=== PATIENT | female | born 1955 | race Caucasian/White ===

== ENCOUNTER 2019-11-25 06:00 | Outpatient (RCR) | payer MEDICARE, MEDICAID, SELFPAY | END 2019-11-30 23:59 | disposition home or self-care (01) | LOC: LAB 06:00 | PROVIDERS: Family Provider Internal Medicine; Visit Provider Nurse Practitioner Family | DX: N20.0 Calculus of kidney (principal); N39.0 Urinary tract infection, site not specified | CPT/HCPCS: 36415; 80061; 81003; 85025; 87086 ==

== ENCOUNTER 2019-12-10 19:11 | Emergency (ER) | payer MEDICARE, MEDICAID, SELFPAY ==
[2019-12-10 19:12] VITALS: BP 129/83; PULSE 79; RESP 18; TEMP 36.6; O2SAT 93; BMI 34.6
--- NOTE | 2019-12-10 19:34 | XRR_ITS ---
PROCEDURE INFORMATION: Exam: XR Chest, 1 View Exam date and time: 12/10/2019 7:41 PM Age: 64 years old Clinical indication: Other: AMS TECHNIQUE: Imaging protocol: XR of the chest Views: 1 view. COMPARISON: CR Chest 1 [place] [id number] 11/16/2019 10:07 AM FINDINGS: Lungs: Unremarkable. No consolidation. Pleural space: Unremarkable. No pleural effusion. No pneumothorax. Heart/Mediastinum: Unremarkable. No cardiomegaly. Bones/joints: Unremarkable. XR/XR chest 1V portable [id number] IMPRESSION: No acute findings.
--- NOTE | 2019-12-10 19:34 | ECG_ITS ---
Measurements Intervals [place] Rate: 72 P: 42 IL: 151 QRS: -18 QRSD: 101 T: 11 QT: 409 QTc: 450 SINUS RHYTHM Compared to ECG 11/14/2019 09:28:32 Sinus tachycardia no longer present Left-axis deviation no longer present Myocardial infarct finding no longer present Electronically Signed On 12-11-2019 16:44:14 AUDOGRAPH OPERATOR by Sue Bolden M.D. [id number]
--- NOTE | 2019-12-10 19:36 | ED_ITS ---
Entered by Catherine Escobar, acting as scribe for Iram Rossi Documented by User: Iram Rossi 12/10/19 23:07 HPI - Psych General: Chief Complaint: Psychiatric Symptoms Stated Complaint: hip Time Seen by Provider: 12/10/19 19:17 Source: patient and EMS Mode of arrival: EMS Limitations: no limitations History of Present Illness: HPI Narrative: 64 yo female presents to ED from [facility] with complaints of suicidal ideation and depression. She said she can't figure out how to kill herself without getting caught. She said she has been wanting to since she was 12. The patient has a Fentanyl patch currently in place. MD complaint: suicidal ideation and feels depressed Onset (ago): year(s) Duration: constant History of same: Yes Relieving factors: none Exacerbating factors: none Context: significant life stressor (continual pain) Associated psychiatric symptoms: depression and suicidal ideation Associated symptoms: Reports depression and suicidal ideation Treatments prior to arrival: placed on mental health hold If self harm: admits thoughts of self harm Review of Systems General: Reports: other (negative unless marked) Const: Denies: fever, chills, fatigue, malaise or diaphoresis Eyes: Denies: change in vision or blurry vision ENMT: Denies: throat pain, painful swallowing, hoarseness, ear pain, ear disc harge, Change in hearing or nasal discharge Card: Denies: chest pain, palpitations, irregular heart rhythm, syncope, pre- syncope, shortness of breath on exertion or shortness of breath when lying down Resp: Denies: shortness of breath, productive cough, non-productive cough, wheezing, coughing up blood or chest congestion GI: Denies: abdominal pain, nausea, vomiting, vomiting blood, coffee grounds in vomit, diarrhea, constipation, cramping, blood in stool or black tarry stool : Denies: flank pain, painful urination, urinary frequency, urinary urgency, decreased urine ouput, urinary incontinence or blood in urine Musc: Denies: neck pain, back pain, extremity swelling, joint swelling, joint warmth or joint stiffness Skin/Breast: Denies: rash, skin tenderness or yellow skin Neuro: Denies: headache, numbness in extremities, weakness in extremities, changes in sensation, lack of coordination, difficulty walking, dizziness, vertigo or confusion Psych: Reports: depression and suicidal ideation Endo: Denies: excessive thirst, tired all the time, cold intolerance, excessive sweating, flushing or hot flashes Pranav/Lymph: Denies: easy bruising, easy bleeding, petechiae or enlarged lymph nodes All/Imm: Denies: hives, throat swelling, tongue swelling, facial swelling or acute wheezing PFSH ED PFSH: Statuses (acute, chronic, etc) shown below reflect problem list status as previously entered and may not be historically accurate Social History Smoking and tobacco status: never smoked Alcohol intake: former Physical Exam Const: COMMON NORMALS: no apparent distress, oriented x3, no limitations, healthy appearing and well nourished EXAM LIMITATIONS: no altered mental status GENERAL APPEARANCE: cooperative, well kempt and well developed O RIENTATION/CONSCIOUSNESS: Yes awake HENMT: COMMON NORMALS: normocephalic, head/scalp atraumatic, hearing grossly normal bilaterally, external ears normal, EAC's normal, external nose normal and moist oral mucous membranes HEAD & SCALP: normal to inspection, normocephalic and atraumatic FACE & SINUS: normal facial exam and face symmetric NOSE: external nose normal and nares normal EXTERNAL EAR: Yes external ears normal EXTERNAL AUDITORY CANAL: EAC's normal MOUTH: oral and palatal mucosa normal and tongue normal Eye: COMMON NORMALS: PERRL, EOMs intact bilaterally, conjunctivae normal and no scleral icterus GENERAL EYE: normal appearance of both eyes and normal light reflex CONJUNCTIVA: Yes conjunctivae normal SCLERA: sclerae normal CORNEA: Yes corneas normal PUPIL: Yes PERRL DIRECT OPHTHALMOSCOPY: Yes n ormal light reflex Neck/C-Spine: COMMON NORMALS: full ROM, no lymphadenopathy, supple, no meningeal signs and no JVD GENERAL: Yes normal visual inspection and Yes trachea midline CERVICAL SPINE: Yes cervical ROM normal Chest: COMMONS NORMALS: inspection of chest normal and palpation of chest normal Resp: COMMON NORMALS: normal respiratory effort, no retractions, no use of accessory muscles and clear to auscultation bilaterally EFFORT & INSPECTION: Yes able to speak in complete sentences AUSCULTATION: clear to auscultation bilaterally Cardio: COMMON NORMALS: no JVD, regular rate, regular rhythm, S1 normal heart sound, S2 normal heart sound, no gallops, no clicks, no murmurs and no rub JUGULAR VENOUS DISTENTION: no JVD RATE: regular rate RHYTHM: regular rhythm HEART SOUNDS: S1 normal and S2 normal GI: COMMON NORMALS: soft to palpation, non-tender, no hepatosplenomegaly and no masses INSPECTION: Yes normal to inspection PALPATION: Yes soft and Yes no hepatosplenomegaly : COMMON NORMALS: Yes no CVA tenderness BLADDER/KIDNEY EXAM: Yes no CVA tenderness Back/Pelvis: COMMON NORMALS: no CVA tenderness, thoracic and lumbar spine normal to inspection, no thoracic nor lumbar tenderness and thoraco-lumbar ROM normal Extremity: COMMON NORMALS: normal to inspection, full ROM, normal capillary refill, no joint enlargement, no clubbing, cyanosis or edema and no calf tenderness Neuro: COMMON NORMALS: oriented x3, CN's II-XII intact bilaterally, moves all extremities, no focal motor deficits and no sensory deficits noted MENINGEAL SIGNS: Yes no meningeal signs Psych: COMMON NORMALS: mental status grossly normal, thought process normal, cooperative, affect normal, speech normal and activity/motor behavior normal APPEARANCE: Yes well kempt SPEECH: Yes normal speech THOUGHT PROCESS: normal thought process Skin: COMMON NORMALS: no rashes or lesions noted, skin turgor normal, no jaundice, no petechiae and no mottling GENERAL SKIN EXAM: no rashes or lesions noted and turgor normal MDM - Psych Lab Data: Labs: Lab Results 12/10/19 12/10/19 12/10/19 Range/Units 20:10 20:10 20:10 WBC 6.8 (4.0-10.0) 10^3/ uL RBC 3.72 L (4.1-5.3) 10^6/u L Hgb 9.6 L (11.5-15.3) g/dL Hct 31.8 L (37.0-47.0) % MCV 85.5 (81-99) fL MCH 25.8 L (28.0-34.0) pg MCHC 30.2 (30.0-36.0) g/dL RDW 15.8 H (12.1-15.1) % Plt Count 311 (130-400) 10^3/c mm MPV 9.8 (7.4-10.4) fL Neut % (Auto) 57.2 % Lymph % (Auto) 30.6 % [place] % (Auto) 7.2 % Eos % (Auto) 4.1 % Baso % (Auto) 0.6 % Neut # (Auto) 3.9 (1.8-7.7) 10^3/u L Lymph # (Auto) 2.1 (0.8-4.8) 10^3/u L [place] # (Auto) 0.5 (0.2-0.9) 10^3/u L Eos # (Auto) 0.3 (0.0-0.8) 10^3/u L Baso # (Auto) 0.0 (0.0-0.1) 10^3/u L Nucleated RBC % (a uto) 0 % Nucleated RBCs # 0.0 /100WBC PT 14.30 H (10.5-13.3) SECO NDS INR 1.07 (0.8-1.2) Sodium 135 L (136-145) mmol/L Potassium 3.9 (3.5-5.1) mmol/L Chloride 100 (98-107) mmol/L Carbon Dioxide 26 (22-29) mmol/L Anion Gap 12.9 (5-19) BUN 15 (8-23) mg/dL Creatinine 0.8 (0.5-0.9) mg/dL GFR Calculation 72.0 L (90-130) mL/min Glucose 247 H (74-106) mg/dL Calcium 9.7 (8.8-10.2) mg/Dl Total Bilirubin 0.2 (0.15-1.2) mg/dL AST 12 (0-32) U/L ALT 11 (0-33) U/L Alkaline Phosphata se 257 H (35-105) IU/L Total Protein 5.9 L (6.6-8.7) g/dL Albumin 3.5 (3.5-5.2) g/dL Globulin 2.4 (1.3-4.6) g/dL TSH 0.82 (0.27-4.20) uIU/ mL Urine Color (Yellow) Urine Appearance (CLEAR) Urine pH (5-7) Ur Specific Gravit y (1.005-1.030) Urine Protein (Negative) Urine Glucose (UA) (Normal) Urine Ketones (Negative) Urine Occult Blood (Negative) Urine Nitrate (Negative) Urine Bilirubin (NEGATIVE) Urine Urobilinogen (Negative) mg/dL Ur Leukocyte Melisa ase (Negative) Urine RBC (0-2) /hpf Urine WBC (0-5) /hpf Ur Squamous Epith Cells (0-5) Urine Bacteria (NONE) Urine Mucus Salicylates < 0.3 L (3-10) mg/dL Urine Opiates Scre en (Negative) ng/mL Acetaminophen < 5.0 L (10-30) ug/mL Ur Barbiturates Sc reen (Negative) ng/mL Phenytoin 0.8 L (10-20) ug/mL Valproic Acid 2.8 L (50-100) mcg/mL Carbamazepine 2.0 L (4.0-12.0) ug/mL Ur Phencyclidine S crn (Negative) ng/mL Ur Amphetamines Sc reen (Negative) ng/mL U Benzodiazepines Scrn (Negative) ng/mL [place] (0.6-1.2) mmol/L Urine Cocaine Scre en (Negative) ng/mL U Marijuana (THC) Screen (Negative) ng/mL Ethyl Alcohol < 10 (0-10) mg/dL 12/10/19 12/10/19 12/10/19 Range/Units 20:10 21:52 21:52 WBC (4.0-10.0) 10^3/ uL RBC (4.1-5.3) 10^6/u L Hgb (11.5-15.3) g/dL Hct (37.0-47.0) % MCV (81-99) fL MCH (28.0-34.0) pg MCHC (30.0-36.0) g/dL RDW (12.1-15.1) % Plt Count (130-400) 10^3/c mm MPV (7.4-10.4) fL Neut % (Auto) % Lymph % (Auto) % [place] % (Auto) % Eos % (Auto) % Baso % (Auto) % Neut # (Auto) (1.8-7.7) 10^3/u L Lymph # (Auto) (0.8-4.8) 10^3/u L [place] # (Auto) (0.2-0.9) 10^3/u L Eos # (Auto) (0.0-0.8) 10^3/u L Baso # (Auto) (0.0-0.1) 10^3/u L Nucleated RBC % (a uto) % Nucleated RBCs # /100WBC PT (10.5-13.3) SECO NDS INR (0.8-1.2) Sodium (136-145) mmol/L Potassium (3.5-5.1) mmol/L Chloride (98-107) mmol/L Carbon Dioxide (22-29) mmol/L Anion Gap (5-19) BUN (8-23) mg/dL Creatinine (0.5-0.9) mg/dL GFR Calculation (90-130) mL/min Glucose (74-106) mg/dL Calcium (8.8-10.2) mg/Dl Total Bilirubin (0.15-1.2) mg/dL AST (0-32) U/L ALT (0-33) U/L Alkaline Phosphata se (35-105) IU/L Total Protein (6.6-8.7) g/dL Albumin (3.5-5.2) g/dL Globulin (1.3-4.6) g/dL TSH (0.27-4.20) uIU/ mL Urine Color Yellow (Yellow) Urine Appearance Clear (CLEAR) Urine pH 5 (5-7) Ur Specific Gravit y 1.020 (1.005-1.030) Urine Protein Neg (Negative) Urine Glucose (UA) Norm (Normal) Urine Ketones Negative (Negative) Urine Occult Blood Trace H (Negative) Urine Nitrate Negative (Negative) Urine Bilirubin Neg (NEGATIVE) Urine Urobilinogen Norm (Negative) mg/dL Ur Leukocyte Melisa ase Negative (Negative) Urine RBC 0-4 H (0-2) /hpf Urine WBC 0-4 H (0-5) /hpf Ur Squamous Epith Cells 0-4 H (0-5) Urine Bacteria Trace (NONE) Urine Mucus 1+ Salicylates (3-10) mg/dL Urine Opiates Scre en Negative (Negative) ng/mL Acetaminophen (10-30) ug/mL Ur Barbiturates Sc reen Negative (Negative) ng/mL Phenytoin (10-20) ug/mL Valproic Acid (50-100) mcg/mL Carbamazepine (4.0-12.0) ug/mL Ur Phencyclidine S crn Negative (Negative) ng/mL Ur Amphetamines Sc reen Negative (Negative) ng/mL U Benzodiazepines Scrn Negative (Negative) ng/mL [place] 0.1 L (0.6-1.2) mmol/L Urine Cocaine Scre en Negative (Negative) ng/mL U Marijuana (THC) Screen Negative (Negative) ng/mL Ethyl Alcohol (0-10) mg/dL Discharge Plan Discharge Patient Disposition: er Psychiatric Hosp Clinical Impression: Suicidal ideation Condition: Stable Discharge Orders: Transfer Out of Facility (Order); Ordered 12/11/19 Ordered By: June Russo Referrals: David Minor MD [Primary Care Provider] - Sign Out Sign Out Data: Patient Sign Out occurred on 12/10/19 at 23:39. Patient's care was discussed, and care was transferred from Iram Rossi to June Russo MD. Sign Out Comment: Patient turned over to Dr. Russo at change of shift. Looking for placement at this time. Last updated by Iram Rossi at 12/10/19 23:27 Coding Level of Care Code ED Oil Fire Specialist for Chg Fwd Exam Problem Focused Documented by User: June Russo MD 12/11/19 05:45 HPI - Psych General: Chief Complaint: Psychiatric Symptoms Stated Complaint: hip Time Seen by Provider: 12/10/19 19:17 PFSH ED PFSH: Statuses (acute, chronic, etc) shown below reflect problem list status as previously entered and may not be historically accurate Social History Smoking and tobacco status: never smoked Alcohol intake: former MDM - Psych MDM Narrative: Medical decision making narrative: Went to visit with patient and told her about her labs. She tells me she is suicidal she wants to she just did not have a plan this time but she wants me to be a real doctor and help her . I reviewed her labs that were ordered by previous ER physician and she had levels for phenytoin valproic acid carbamazepine and lithium they were on the order set but she is not on any of these medications I suspect this error in ordering to check levels of medications she is not on. [id number] pt is medically stable and clear for transfer. Pursuing placement patient will likely be here several more hours until accepted by facility that takes [facility] [id number] patient was accepted by [facility] waiting for transport I did not have to speak to an accepting physician and was unaware that they had accepted her. It was found that she had a 96-hour hold on the chart but patient is voluntary and nursing is confirming with [facility] that they will still accept her. Nursing did confirm that [facility] will still accept her. Lab Data: Labs: Lab Results 12/10/19 12/10/19 12/10/19 Range/Units 20:10 20:10 20:10 WBC 6.8 (4.0-10.0) 10^3/ uL RBC 3.72 L (4.1-5.3) 10^6/u L Hgb 9.6 L (11.5-15.3) g/dL Hct 31.8 L (37.0-47.0) % MCV 85.5 (81-99) fL MCH 25.8 L (28.0-34.0) pg MCHC 30.2 (30.0-36.0) g/dL RDW 15.8 H (12.1-15.1) % Plt Count 311 (130-400) 10^3/c mm MPV 9.8 (7.4-10.4) fL Neut % (Auto) 57.2 % Lymph % (Auto) 30.6 % [place] % (Auto) 7.2 % Eos % (Auto) 4.1 % Baso % (Auto) 0.6 % Neut # (Auto) 3.9 (1.8-7.7) 10^3/u L Lymph # (Auto) 2.1 (0.8-4.8) 10^3/u L [place] # (Auto) 0.5 (0.2-0.9) 10^3/u L Eos # (Auto) 0.3 (0.0-0.8) 10^3/u L Baso # (Auto) 0.0 (0.0-0.1) 10^3/u L Nucleated RBC % (a uto) 0 % Nucleated RBCs # 0.0 /100WBC PT 14.30 H (10.5-13.3) SECO NDS INR 1.07 (0.8-1.2) Sodium 135 L (136-145) mmol/L Potassium 3.9 (3.5-5.1) mmol/L Chloride 100 (98-107) mmol/L Carbon Dioxide 26 (22-29) mmol/L Anion Gap 12.9 (5-19) BUN 15 (8-23) mg/dL Creatinine 0.8 (0.5-0.9) mg/dL GFR Calculation 72.0 L (90-130) mL/min Glucose 247 H (74-106) mg/dL Calcium 9.7 (8.8-10.2) mg/Dl Total Bilirubin 0.2 (0.15-1.2) mg/dL AST 12 (0-32) U/L ALT 11 (0-33) U/L Alkaline Phosphata se 257 H (35-105) IU/L Total Protein 5.9 L (6.6-8.7) g/dL Albumin 3.5 (3.5-5.2) g/dL Globulin 2.4 (1.3-4.6) g/dL TSH 0.82 (0.27-4.20) uIU/ mL Urine Color (Yellow) Urine Appearance (CLEAR) Urine pH (5-7) Ur Specific Gravit y (1.005-1.030) Urine Protein (Negative) Urine Glucose (UA) (Normal) Urine Ketones (Negative) Urine Occult Blood (Negative) Urine Nitrate (Negative) Urine Bilirubin (NEGATIVE) Urine Urobilinogen (Negative) mg/dL Ur Leukocyte Melisa ase (Negative) Urine RBC (0-2) /hpf Urine WBC (0-5) /hpf Ur Squamous Epith Cells (0-5) Urine Bacteria (NONE) Urine Mucus Salicylates < 0.3 L (3-10) mg/dL Urine Opiates Scre en (Negative) ng/mL Acetaminophen < 5.0 L (10-30) ug/mL Ur Barbiturates Sc reen (Negative) ng/mL Phenytoin 0.8 L (10-20) ug/mL Valproic Acid 2.8 L (50-100) mcg/mL Carbamazepine 2.0 L (4.0-12.0) ug/mL Ur Phencyclidine S crn (Negative) ng/mL Ur Amphetamines Sc reen (Negative) ng/mL U Benzodiazepines Scrn (Negative) ng/mL [place] (0.6-1.2) mmol/L Urine Cocaine Scre en (Negative) ng/mL U Marijuana (THC) Screen (Negative) ng/mL Ethyl Alcohol < 10 (0-10) mg/dL 12/10/19 12/10/19 12/10/19 Range/Units 20:10 21:52 21:52 WBC (4.0-10.0) 10^3/ uL RBC (4.1-5.3) 10^6/u L Hgb (11.5-15.3) g/dL Hct (37.0-47.0) % MCV (81-99) fL MCH (28.0-34.0) pg MCHC (30.0-36.0) g/dL RDW (12.1-15.1) % Plt Count (130-400) 10^3/c mm MPV (7.4-10.4) fL Neut % (Auto) % Lymph % (Auto) % [place] % (Auto) % Eos % (Auto) % Baso % (Auto) % Neut # (Auto) (1.8-7.7) 10^3/u L Lymph # (Auto) (0.8-4.8) 10^3/u L [place] # (Auto) (0.2-0.9) 10^3/u L Eos # (Auto) (0.0-0.8) 10^3/u L Baso # (Auto) (0.0-0.1) 10^3/u L Nucleated RBC % (a uto) % Nucleated RBCs # /100WBC PT (10.5-13.3) SECO NDS INR (0.8-1.2) Sodium (136-145) mmol/L Potassium (3.5-5.1) mmol/L Chloride (98-107) mmol/L Carbon Dioxide (22-29) mmol/L Anion Gap (5-19) BUN (8-23) mg/dL Creatinine (0.5-0.9) mg/dL GFR Calculation (90-130) mL/min Glucose (74-106) mg/dL Calcium (8.8-10.2) mg/Dl Total Bilirubin (0.15-1.2) mg/dL AST (0-32) U/L ALT (0-33) U/L Alkaline Phosphata se (35-105) IU/L Total Protein (6.6-8.7) g/dL Albumin (3.5-5.2) g/dL Globulin (1.3-4.6) g/dL TSH (0.27-4.20) uIU/ mL Urine Color Yellow (Yellow) Urine Appearance Clear (CLEAR) Urine pH 5 (5-7) Ur Specific Gravit y 1.020 (1.005-1.030) Urine Protein Neg (Negative) Urine Glucose (UA) Norm (Normal) Urine Ketones Negative (Negative) Urine Occult Blood Trace H (Negative) Urine Nitrate Negative (Negative) Urine Bilirubin Neg (NEGATIVE) Urine Urobilinogen Norm (Negative) mg/dL Ur Leukocyte Melisa ase Negative (Negative) Urine RBC 0-4 H (0-2) /hpf Urine WBC 0-4 H (0-5) /hpf Ur Squamous Epith Cells 0-4 H (0-5) Urine Bacteria Trace (NONE) Urine Mucus 1+ Salicylates (3-10) mg/dL Urine Opiates Scre en Negative (Negative) ng/mL Acetaminophen (10-30) ug/mL Ur Barbiturates Sc reen Negative (Negative) ng/mL Phenytoin (10-20) ug/mL Valproic Acid (50-100) mcg/mL Carbamazepine (4.0-12.0) ug/mL Ur Phencyclidine S crn Negative (Negative) ng/mL Ur Amphetamines Sc reen Negative (Negative) ng/mL U Benzodiazepines Scrn Negative (Negative) ng/mL [place] 0.1 L (0.6-1.2) mmol/L Urine Cocaine Scre en Negative (Negative) ng/mL U Marijuana (THC) Screen Negative (Negative) ng/mL Ethyl Alcohol (0-10) mg/dL EKG Data^: EKG 1: Attestation: I personally reviewed and interpreted this EKG as follows: EKG interpretation date: 12/10/19 EKG interpretation time: 23:50 Interpretation: Normal sinus rhythm rate [address] elevation normal MT interval. Discharge Plan Discharge Patient Disposition: Xfer Psychiatric Hosp Clinical Impression: Suicidal ideation Condition: Stable Discharge Orders: Transfer Out of Facility (Order); Ordered 12/11/19 Ordered By: June Russo Referrals: David Minor MD [Primary Care Provider] - Sign Out Sign Out Data: Patient Sign Out occurred on 12/10/19 at 23:39. Patient's care was discussed, and care was transferred from Iram Rossi to June Russo MD. Sign Out Comment: Patient turned over to Dr. Russo at change of shift. Looking for placement at this time. Last updated by Iram Rossi at 12/10/19 23:27 Coding Level of Care Code ED Oil Fire Specialist for Chg Fwd Exam Problem Focused The documentation recorded by the scribeLuz Valerie R, accurately reflects the service I personally performed and the decisions made by me, Iram Rossi Dec 10, 2019 19:11
--- NOTE | 2019-12-10 19:49 | XRR_ITS ---
PROCEDURE INFORMATION: Exam: XR Left Hip with Pelvis when Performed Exam date and time: 12/10/2019 7:56 PM Age: 64 years old Clinical indication: Prior surgery; Surgery type: Thr; Patient HX: Patient claims to have fallen a few weeks ago. C/O left hip pain. TECHNIQUE: Imaging protocol: XR Left hip with pelvis when performed. Views: 2 or 3 views. 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 The appearance of the prosthesis is not changed compared with 11/17/2019. Soft tissues: Unremarkable. XR/XR hip LT 2-3V wo/w pel* [id number] IMPRESSION: Left hip replacement.
[2019-12-10 20:29] LABS: Basophils % 0.6 %; Eosinophils # 0.3 10^3/uL (0.0-0.8); Eosinophils % 4.1 %; Hematocrit 31.8 % (37.0-47.0); Hemoglobin 9.6 g/dL (11.5-15.3); Lymphocytes # 2.1 10^3/uL (0.8-4.8); Lymphocytes % 30.6 %; Mean Corpuscular HGB Conc 30.2 g/dL (30.0-36.0); Mean Corpuscular Hemoglobin 25.8 pg (28.0-34.0); Mean Corpuscular Volume 85.5 fL (81-99); Mean Platelet Volume 9.8 fL (7.4-10.4); Monocytes # 0.5 10^3/uL (0.2-0.9); Monocytes % 7.2 %; Neutrophils # 3.9 10^3/uL (1.8-7.7); Neutrophils % 57.2 %; Nucleated Red Blood Cells % 0 %; Platelet Count 311 10^3/cmm (130-400); Red Blood Count 3.72 10^6/uL (4.1-5.3); Red Cell Distribution Width 15.8 % (12.1-15.1); White Blood Count 6.8 10^3/uL (4.0-10.0)
[2019-12-10 20:37] LABS: INR 1.07 (0.8-1.2); Lithium 0.1 mmol/L (0.6-1.2)
[2019-12-10 20:46] LABS: Alanine Aminotransferase 11 U/L (0-33); Albumin Level 3.5 g/dL (3.5-5.2); Alkaline Phosphatase 257 IU/L (35-105); Anion Gap 12.9 (5-19); Aspartate Amino Transferase 12 U/L (0-32); Blood Urea Nitrogen 15 mg/dL (8-23); Calcium 9.7 mg/Dl (8.8-10.2); Carbon Dioxide 26 mmol/L (22-29); Chloride 100 mmol/L (98-107); Globulin 2.4 g/dL (1.3-4.6); Glucose 247 mg/dL (74-106); Phenytoin Dilantin 0.8 ug/mL (10-20); Potassium 3.9 mmol/L (3.5-5.1); Sodium 135 mmol/L (136-145); Thyroid Stimulating Hormone 0.82 uIU/mL (0.27-4.20); Total Bilirubin 0.2 mg/dL (0.15-1.2); Total Protein 5.9 g/dL (6.6-8.7); Valproic Acid Level 2.8 mcg/mL (50-100)
[2019-12-10 20:59] LABS: Acetaminophen < 5.0 ug/mL (10-30); Alcohol Level < 10 mg/dL (0-10); Salicylate < 0.3 mg/dL (3-10)
[2019-12-10 21:29] VITALS: BP 156/80; PULSE 96; RESP 22; O2SAT 96
[2019-12-10 21:56] VITALS: RESP 18
[2019-12-10] MEDS: oxyCODONE-APAP 5-325 mg Tablet 1 TAB PO (21:56)
[2019-12-10 22:19] LABS: Add Urine Microscopic? YES; Bilirubin Urine Neg (NEGATIVE); Blood Urine Trace (Negative); Glucose Urine UA Norm (Normal); Ketones Urine Negative (Negative); Leukocyte Esterase Urine Negative (Negative); Nitrate Urine Negative (Negative); Protein Urine Neg (Negative); Urine Appearance Clear (CLEAR); Urine Color Yellow (Yellow); Urobilinogen Urine Norm (Negative); pH Urine 5 (5-7)
[2019-12-10 22:20] LABS: Add Urine Culture? No; Bacteria Urine TRACE; Mucus Urine 1+; RBC Urine 0-4 /hpf (0-2); Squamous Epithelial Cell Urine 0-4 (0-5); WBC Urine 0-4 /hpf (0-5)
[2019-12-10 22:25] LABS: Amphetamines Screen Urine Negative (Negative); Barbiturates Screen Urine Negative (Negative); Benzodiazepines Screen Urine Negative (Negative); Cocaine Screen Urine Negative (Negative); Opiate Screen Urine Negative (Negative); PCP Screen Urine Negative (Negative); THC Screen Urine Negative (Negative)
--- NOTE | 2019-12-10 23:55 | PC.NURSE ---
checked patient blood glucose, blood glucose is 157. Doctor, and charge nurse were informed. Checked due to patient informing me that she is a diabetic and would like something to eat, okay by charge nurse and doctor.Patient did not have ID band on, notified a nurse and equal opportunity director, one has been printed and placed on patient.
--- NOTE | 2019-12-11 00:07 | PC.NURSE ---
Patient was given a ham sandwich and cheese stick. Patient refused cheese stick, patient sitter is holding onto it in case she decides she will eat it.
[2019-12-11 01:36] VITALS: BP 179/105; PULSE 73; RESP 20; O2SAT 97
--- NOTE | 2019-12-11 01:40 | PC.NURSE ---
Patient is calm, awake, but also shows some agitation.
[2019-12-11] MEDS: LORazepam 1 mg Tablet PO ×2 (02:39)
[2019-12-11 05:47] VITALS: BP 206/88; PULSE 69; RESP 18; O2SAT 98
[2019-12-11] MEDS: LORazepam 1 mg Tablet 2 MG PO (05:47)
--- NOTE | 2019-12-11 08:18 | PC.NURSE ---
Food tray ordered for patient
--- NOTE | 2019-12-11 08:34 | PC.NURSE ---
[facility] called,transfer form was never faxed. Transfer from faxed at this time.
--- NOTE | 2019-12-11 09:08 | PC.NURSE ---
[facility] informed of departure at this time.
== END 2019-12-11 09:09 ==
PROVIDERS: Emergency Medicine; Emergency Provider Emergency Medicine; Family Provider Internal Medicine; PCP Internal Medicine
DX: R45.851 Suicidal ideations (principal); R41.82 Altered mental status, unspecified
CPT/HCPCS: 36415; 71045; 73502; 80053; 80156; 80164; 80178; 80185; 80307; 81003; 84443; 85025; 85610; 93005; 99284

== ENCOUNTER → 2020-04-18 08:43 | Outpatient (BNVA) | payer MEDICARE, MEDICAID, SELFPAY | PROVIDERS: Family Provider Internal Medicine; PCP Internal Medicine; Visit Provider Psychiatry & Neurology Psychiatry | DX: F48.9 Nonpsychotic mental disorder, unspecified (principal); G47.00 Insomnia, unspecified; F31.9 Bipolar disorder, unspecified; F41.9 Anxiety disorder, unspecified; E03.9 Hypothyroidism, unspecified; G43.909 Migraine, unspecified, not intractable, without status migrainosus | CPT/HCPCS: 99205 ==

== ENCOUNTER → 2020-04-28 07:48 | Outpatient (BNVA) | payer MEDICARE, MEDICAID, SELFPAY | PROVIDERS: Family Provider Internal Medicine; PCP Internal Medicine; Visit Provider Psychiatry & Neurology Psychiatry | DX: G47.00 Insomnia, unspecified (principal); F48.9 Nonpsychotic mental disorder, unspecified | CPT/HCPCS: 99212; 99213 ==

== ENCOUNTER → 2020-05-05 09:10 | Outpatient (BNVA) | payer MEDICARE, MEDICAID, SELFPAY | PROVIDERS: Family Provider Internal Medicine; PCP Internal Medicine; Visit Provider Psychiatry & Neurology Psychiatry | DX: F31.62 Bipolar disorder, current episode mixed, moderate (principal); F39 Unspecified mood [affective] disorder; E53.8 Deficiency of other specified B group vitamins; E55.9 Vitamin D deficiency, unspecified; F45.8 Other somatoform disorders; G47.09 Other insomnia | CPT/HCPCS: 99215 ==

== ENCOUNTER 2021-04-28 07:05 | Emergency (ER) | payer MEDICARE, MEDICAID, SELFPAY ==
[2021-04-28 07:14] VITALS: BP 146/98; PULSE 84; RESP 16; TEMP 36.4; O2SAT 96; BMI 32.1
--- NOTE | 2021-04-28 07:34 | W.ED.GIBLEED ---
HPI - GI Bleed General: Chief complaint: GI Bleed Stated complaint: BLOOD IN STOOL, low back pain Time Seen by Provider: 04/28/21 07:05 History of Present Illness: HPI Narrative: 86-year-old female presents to the emergency room from the residential with complaint of blood in the stool was noticed earlier today. She also some low back pain she has chronic low back pain. She has a history of atrial fibrillation and is on apixaban. MD complaint: blood streaked stool Onset (ago): minute(s) Pain Consistency: intermittent Relieving factors: none Exacerbating factors: none Context: hemorrhoids Associated symptoms: Denies abdominal pain, chills, easy bruising, epistaxis, fever(s), headache(s), malaise, nausea, other bleeding, poor appetite, rash, syncope, vomiting or weakness Treatments Prior to Arrival: none Review of Systems Const: Denies: fever(s), chills or malaise ENMT: Denies: epistaxis Card: Denies: syncope Resp: Denies: dyspnea, productive cough or non-productive cough GI: Denies: abdominal pain, nausea or vomiting : Denies: flank pain, difficulty voiding, dysuria, urinary frequency or urinary urgency Skin/Breast: Denies: rash Neuro: Denies: headache(s) Pranav/Lymph: Denies: easy bruising PFSH ED PFSH: Medical History Anemia Anxiety Atrial fibrillation Bipolar 1 disorder Blindness Epilepsy Hypertension Hypothyroidism Major depressive disorder Migraine PTSD (post-traumatic stress disorder) Schizophrenia Type 2 diabetes mellitus Social History Smoking and tobacco status: never smoked Alcohol intake: former Physical Exam Const: COMMON NORMALS: no acute distress GENERAL APPEARANCE: cooperative and comfortable ORIENTATION/CONSCIOUSNESS: Yes awake HENMT: COMMON NORMALS: atraumatic and hearing grossly normal bilaterally HEAD & SCALP: atraumatic Eye: OTHER: Globe the left eye is significantly atrophied with consequent atrophy of the orbit. Neck/C-Spine: COMMON NORMALS: no JVD Resp: COMMON NORMALS: normal respiratory effort, No retractions, No use of accessory muscles and clear to auscultation bilaterally AUSCULTATION: clear to auscultation bilaterally Cardio: COMMON NORMALS: no JVD, regular rate, regular rhythm and No murmurs present (Cardio) RATE: regular rate RHYTHM: regular rhythm GI: COMMON NORMALS: Soft to palpation and No hepatosplenomegaly present AUSCULTATION: Yes normoactive bowel sounds PALPATION: Yes Soft to palpation, No Tenderness to palpation present (GI), No Guarding due to palpation present (GI) and Yes No hepatosplenomegaly present RECTAL EXAM: External hemorrhoid(s) present (inflamed with small amount of dark red blood) and hemorrhoids External hemorrhoid(s): Yes (inflamed with small amount of dark red blood) Extremity: COMMON NORMALS: normal to inspection, capillary refill normal, no clubbing, cyanosis or edema, no calf tenderness and no pedal edema Skin: COMMON NORMALS: no rashes or lesions noted GENERAL SKIN EXAM: no rashes or lesions noted Course Vital Signs: Vital signs: Vital Signs Temperature 97.5 F L 04/28/21 07:14 Pulse Rate 84 04/28/21 07:14 Respiratory Rate 16 04/28/21 07:14 Blood Pressure 146/98 04/28/21 07:14 Pulse Oximetry 96 04/28/21 07:14 MDM - GI Bleed MDM Narrative: Medical decision making narrative: Lasix and valsartan. In lieu of that we will start her on amlodipine. Macrobid for infection. On exam she had significant irritated hemorrhoids will use topical steroids for that recheck a hemoglobin and a potassium in 3 days. Lab Data: Labs: Lab Results 04/28/21 04/28/21 04/28/21 Range/Units 07:43 07:43 07:50 WBC 7.0 (4.0-10.0) 10^3/ uL RBC 3.85 L (4.1-5.3) 10^6/u L Hgb 12.1 (11.5-15.3) g/dL Hct 36.4 L (37.0-47.0) % MCV 94.5 (81-99) fL MCH 31.4 (28.0-34.0) pg MCHC 33.2 (30.0-36.0) g/dL RDW 13.7 (12.1-15.1) % Plt Count 146 (130-400) 10^3/c mm MPV 10.9 H (7.4-10.4) fL Neut % (Auto) 53.3 % Lymph % (Auto) 32.4 % [place] % (Auto) 11.8 % Eos % (Auto) 1.3 % Baso % (Auto) 0.3 % Neut # (Auto) 3.71 (1.8-7.7) 10^3/u L Lymph # (Auto) 2.3 (0.8-4.8) 10^3/u L [place] # (Auto) 0.8 (0.2-0.9) 10^3/u L Eos # (Auto) 0.1 (0.0-0.8) 10^3/u L Baso # (Auto) 0.0 (0.0-0.1) 10^3/u L Nucleated RBC % (a uto) 0 % Nucleated RBCs # 0.0 /100WBC Sodium 139 (136-145) mmol/L Potassium 5.5 H (3.5-5.1) mmol/L Chloride 102 (98-107) mmol/L Carbon Dioxide 28 (22-29) mmol/L Anion Gap 14.5 (5-19) BUN 26 H (8-23) mg/dL Creatinine 0.9 (0.5-0.9) mg/dL GFR Calculation 62.5 L (90-130) mL/min Glucose 125 H (65-115) mg/dL Calculated Osmolal ity 294 (285-295) mOsm/k g Calcium 9.1 (8.5-10.5) mg/dL Total Bilirubin 0.3 (0.15-1.2) mg/dL AST 21 (0-32) U/L ALT 7 (0-33) U/L Alkaline Phosphata se 70 (35-105) IU/L Total Protein 5.8 L (6.6-8.7) g/dL Albumin 3.6 (3.5-5.2) g/dL Globulin 2.2 (1.3-4.6) g/dL Urine Color Yellow (Yellow) Urine Appearance Hazy A (CLEAR) Urine pH 6 (5-7) Ur Specific Gravit y 1.020 (1.005-1.030) Urine Protein Neg (Negative) Urine Glucose (UA) Norm (Normal) Urine Ketones Negative (Negative) Urine Blood Trace H (Negative) Urine Nitrate Negative (Negative) Urine Bilirubin Neg (Negative) Urine Urobilinogen Norm (Negative) mg/dL Ur Leukocyte Melisa ase 2+ H (Negative) Urine RBC 0-4 H (0-2) /hpf Urine WBC 25-40 H (0-5) /hpf Ur Squamous Epith Cells Rare (0-5) /hpf Amorphous Sediment 2+ /hpf Urine Bacteria 2+ H (NONE) /hpf Discharge Plan Discharge Patient Disposition: Home Clinical Impression: Hemorrhoids, Hyperkalemia, Cystitis Condition: Stable Prescriptions: New Macrobid 100 mg capsule 100 mg PO BID 7 Days Qty: 14 RF: 0 amlodipine 5 mg tablet 5 mg PO DAILY Qty: 30 RF: 0 Anusol-HC 2.5 % cream with perineal applicator 1 applic WI QID 21 Days RF: 2 Held valsartan [Diovan] 80 mg tablet 80 mg PO DAILY RF: 0 Hold Instructions: Resume on 05/04/21. Hold and notify attending. Recheck K+ in 3 days Eliquis 5 mg tablet 5 mg PO BID RF: 0 Hold Instructions: Resume on 05/01/21. Hold x 3 days, notify attending for furhter instructions No Action metformin 1,000 mg tablet extended release 24hr 1,000 mg PO BID RF: 0 metoprolol tartrate 50 mg tablet 50 mg PO BID RF: 0 docusate sodium 100 mg tablet 200 mg PO BID RF: 0 fludrocortisone 0.1 mg tablet 0.1 mg PO DAILY RF: 0 latanoprost 0.005 % drops 1 drop ophthalmic (eye) DAILY RF: 0 levothyroxine 75 mcg capsule 75 mcg PO DAILY RF: 0 timolol 0.25 % drops 1 drop ophthalmic (eye) BID RF: 0 acetaminophen [Tylenol] 325 mg tablet 650 mg PO Q6H PRN (Reason: Pain) RF: 0 polyethylene glycol 3350 17 gram/dose powder 17 gm PO DAILY PRN (Reason: constipation) RF: 0 insulin aspart U-100 [Novolog Flexpen U-100 Insulin] 100 unit/mL (3 mL) insulin pen 3 unit SUBCUT BID RF: 0 ondansetron 4 mg tablet,disintegrating 4 mg PO Q6H PRN (Reason: Nausea) RF: 0 hydrocortisone 2.5 % cream with applicator 1 % WI BID PRN (Reason: Hemorrhoids) RF: 0 triamcinolone acetonide [Triderm] 0.1 % cream 1 applic TOPICAL TID PRN (Reason: Rash) RF: 0 melatonin 3 mg tablet 3 mg PO .QHS PRN (Reason: Sleep) RF: 0 trospium 20 mg tablet 20 mg PO BID RF: 0 risperidone [Risperdal] 1 mg tablet 1 mg PO TID RF: 0 citalopram 10 mg tablet 10 mg PO BID RF: 0 ibuprofen 600 mg tablet 600 mg PO TID PRN (Reason: Pain) RF: 0 divalproex 500 mg tablet,delayed release (DR/EC) 500 mg PO BID RF: 0 Levemir FlexTouch U-100 Insuln 100 unit/mL (3 mL) insulin pen 15 unit SUBCUT DAILY RF: 0 zinc acetate 25 mg (zinc) capsule 25 mg PO DAILY Qty: 30 RF: 2 lorazepam 0.5 mg tablet 0.5 mg PO .q6 MDD 2 mg per day PRN (Reason: anxiety) Qty: 60 RF: 0 fentanyl 25 mcg/hr Patch 72 Hour 1 patch TRANSDERMAL Q72H RF: 0 magnesium hydroxide [Milk of Magnesia] 400 mg/5 mL Suspension 30 ml PO DAILY PRN (Reason: Constipation) RF: 0 bisacodyl 10 mg Suppository 10 mg WI DAILY PRN (Reason: Fever) RF: 0 Januvia 100 mg Tablet 100 mg PO DAILY RF: 0 (DME) Novofine Autocover 30 gauge x 1/3 Needle MISCELLANEOUS RF: 0 Biotene Oralbalance (enzymes) Liquid 15 ea MUCOUS MEMBRANE Q4H RF: 0 oxycodone 5 mg tablet 5 mg PO DAILY PRN (Reason: Pain) RF: 0 Discharge Orders: Discharge ED (Routine); Ordered 04/28/21 Ordered By: Tera Nelson Referrals: Bhavna Minor MD [Primary Care Provider] - Discharge Diet: Usual diet Discharge Activity: Resume usual activity Patient Instructions: Opioid Safety Activity Restrictions/Additional Instructions: Start Eliquis and valsartan. Recheck potassium in 3 days. Notify attending of medication changes for further instructions. Recheck hemoglobin in 3 days. Start amlodipine to replace valsartan for blood pressure control. Macrobid twice daily for 7 days for cystitis. Coding Level of Care Code ED Fabrication Technician for Chg Fwd Exam Comprehensive
[2021-04-28 08:06] LABS: Basophils % 0.3 %; Eosinophils # 0.1 10^3/uL (0.0-0.8); Eosinophils % 1.3 %; Hematocrit 36.4 % (37.0-47.0); Hemoglobin 12.1 g/dL (11.5-15.3); Lymphocytes # 2.3 10^3/uL (0.8-4.8); Lymphocytes % 32.4 %; Mean Corpuscular HGB Conc 33.2 g/dL (30.0-36.0); Mean Corpuscular Hemoglobin 31.4 pg (28.0-34.0); Mean Corpuscular Volume 94.5 fL (81-99); Mean Platelet Volume 10.9 fL (7.4-10.4); Monocytes # 0.8 10^3/uL (0.2-0.9); Monocytes % 11.8 %; Neutrophils # 3.71 10^3/uL (1.8-7.7); Neutrophils % 53.3 %; Nucleated Red Blood Cells % 0 %; Platelet Count 146 10^3/cmm (130-400); Red Blood Count 3.85 10^6/uL (4.1-5.3); Red Cell Distribution Width 13.7 % (12.1-15.1)
[2021-04-28 08:16] LABS: Urine Appearance Hazy (CLEAR); Urine Color Yellow (Yellow)
[2021-04-28 08:16] LABS: Alanine Aminotransferase 7 U/L (0-33); Albumin Level 3.6 g/dL (3.5-5.2); Alkaline Phosphatase 70 IU/L (35-105); Blood Urea Nitrogen 26 mg/dL (8-23); Calcium 9.1 mg/dL (8.5-10.5); Carbon Dioxide 28 mmol/L (22-29); Chloride 102 mmol/L (98-107); Globulin 2.2 g/dL (1.3-4.6); Glomerular Filtration Rate 62.5 mL/min (90-130); Glucose 125 mg/dL (65-115); Osmolality Calculated 294 mOsm/kg (285-295); Sodium 139 mmol/L (136-145); Total Bilirubin 0.3 mg/dL (0.15-1.2); Total Protein 5.8 g/dL (6.6-8.7)
[2021-04-28 08:17] LABS: Add Urine Microscopic? YES; Bilirubin Urine Neg (Negative); Blood Urine Trace (Negative); Glucose Urine UA Norm (Normal); Ketones Urine Negative (Negative); Leukocyte Esterase Urine 2+ (Negative); Nitrate Urine Negative (Negative); Protein Urine Neg (Negative); Urobilinogen Urine Norm (Negative); pH Urine 6 (5-7)
[2021-04-28 08:18] LABS: RBC Urine 0-4 /hpf (0-2); WBC Urine 25-40 /hpf (0-5)
[2021-04-28 08:19] LABS: Add Urine Culture? Yes; Amorphous Sediment Urine 2+ /hpf; Bacteria Urine 2+ /hpf; Squamous Epithelial Cell Urine RARE /hpf (0-5)
[2021-04-28 08:23] LABS: Anion Gap 14.5 (5-19); Aspartate Amino Transferase 21 U/L (0-32); Potassium 5.5 mmol/L (3.5-5.1)
[2021-04-28] MEDS: cefTRIAXone 1,000 MG in sodium chloride 0.9% (plus) 50 ML 100 MG IV (09:02)
[2021-04-28] MEDS: sodium chloride 0.9% 500 ML 999 ML IV (09:02)
[2021-04-28 09:35] VITALS: BP 134/74; PULSE 98; RESP 18; TEMP 37.1; O2SAT 98
== END 2021-04-28 11:02 | disposition home or self-care (01) ==
PROVIDERS: Emergency Provider Family Medicine; PCP Family Medicine
DX: K64.9 Unspecified hemorrhoids (principal); E87.5 Hyperkalemia; N30.90 Cystitis, unspecified without hematuria; Z79.01 Long term (current) use of anticoagulants; Z79.4 Long term (current) use of insulin; I48.91 Unspecified atrial fibrillation; I10 Essential (primary) hypertension; E11.9 Type 2 diabetes mellitus without complications
CPT/HCPCS: 80053; 81001; 85025; 87077; 87086; 96365; 99283; J0696; J7040

== ENCOUNTER 2021-09-19 12:14 | Inpatient (IN) | payer MEDICARE, MEDICAID, SELFPAY ==
[2021-09-19] VITALS (10 sets, daily range): BP systolic 120–155; BP diastolic 80–97; PULSE 75–104; RESP 12–20; TEMP 36.9–37.1; O2SAT 94–97; BMI 31.4; BMI 32.1
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
[2021-09-19 12:40] LABS: Glucose Point of Care 158 mg/dL (70-110)
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
[2021-09-19 13:22] LABS: Bilirubin Urine 1+ (Negative); Blood Urine 2+ (Negative); Glucose Urine UA Trace (Normal); Ketones Urine Negative (Negative); Nitrate Urine Positive (Negative); Protein Urine Neg (Negative); Urine Appearance Cloudy (CLEAR); Urine Color Straw (Yellow); pH Urine 5 (5-7)
[2021-09-19 13:23] LABS: Add Urine Culture? Yes; Add Urine Microscopic? YES; Bacteria Urine 3+ /hpf; Leukocyte Esterase Urine 2+ (Negative); Mucus Urine 1+ /hpf; RBC Urine 0-4 /hpf (0-2); Squamous Epithelial Cell Urine 0-4 /hpf (0-5); Urobilinogen Urine 1 mg/dL (Negative); WBC Urine TOO NUMEROUS TO CNT /hpf (0-5)
--- NOTE | 2021-09-19 13:53 | PC.PHAR ---
pt is from [facility]-spoke to chaparrita nurse at [facility] states the pt took am meds today-not started taking zoloft yet per chaparrita from [facility]-states pt was suppose to start 25mg today then on 09/26/21 to go to 50mg hs
--- NOTE | 2021-09-19 14:08 | ECG_ITS ---
Test Date: 2021-09-19 Pat Name: Radha Valencia Department: Room: Gender: Female Financial Project Manager: : 1955 Requested By: Tera Granados Order Number: [id number] Reading MD: MANJU SAUL Measurements Intervals [place] Rate: 102 P: 46 MD: 150 QRS: -30 QRSD: 90 T: 3 QT: 325 QTc: 425 Interpretive Statements SINUS TACHYCARDIA LOW QRS VOLTAGE IN PRECORDIAL LEADS [QRS DEFLECTION < 1.0 mV IN CHEST LEADS] SEPTAL MYOCARDIAL INFARCTION , OF INDETERMINATE AGE [40+ ms Q WAVE IN V1/V2] Compared to ECG 12/10/2019 23:42:14 Low QRS voltage now present Myocardial infarct finding now present Sinus rhythm no longer present Electronically Signed On 09-20-2021 0:11:52 CDT by MANJU SAUL [id number]
[2021-09-19 14:30] LABS: Basophils % 0.4 %; Eosinophils % 0.2 %; Hematocrit 28.6 % (37.0-47.0); Hemoglobin 9.5 g/dL (11.5-15.3); Lymphocytes # 1.9 10^3/uL (0.8-4.8); Lymphocytes % 22.7 %; Mean Corpuscular HGB Conc 33.2 g/dL (30.0-36.0); Mean Corpuscular Volume 96.3 fl (81-99); Mean Platelet Volume 9.1 fL (7.4-10.4); Monocytes # 1.5 10^3/uL (0.2-0.9); Monocytes % 18.2 %; Neutrophils # 4.75 10^3/uL (1.8-7.7); Nucleated Red Blood Cells % 0 %; Platelet Count 143 10^3/cmm (130-400); Red Blood Count 2.97 10^6/uL (4.1-5.3); Red Cell Distribution Width 15.6 % (12.1-15.1); White Blood Count 8.5 10^3/uL (4.0-10.0)
[2021-09-19 14:59] LABS: Alanine Aminotransferase 11 U/L (0-33); Albumin Level 2.9 g/dL (3.5-5.2); Alkaline Phosphatase 76 IU/L (35-105); Anion Gap 17.1 (5-19); Aspartate Amino Transferase 16 U/L (0-32); Blood Urea Nitrogen 35 mg/dL (8-23); Calcium 10.8 mg/dL (8.5-10.5); Carbon Dioxide 24 mmol/L (22-29); Chloride 103 mmol/L (98-107); Globulin 2.2 g/dL (1.3-4.6); Glomerular Filtration Rate 44.8 mL/min (90-130); Glucose 186 mg/dL (65-115); Osmolality Calculated 303 mOsm/kg (285-295); Potassium 4.1 mmol/L (3.5-5.1); Sodium 140 mmol/L (136-145); Total Bilirubin 0.3 mg/dL (0.15-1.2); Total Protein 5.1 g/dL (6.6-8.7); Valproic Acid Level 71.8 ug/mL (50-100)
--- NOTE | 2021-09-19 15:02 | CTR_ITS ---
PROCEDURE INFORMATION: Exam: CT Chest With Contrast; Diagnostic Exam date and time: 09/19/2021 3:02 PM Age: 66 years old Clinical indication: Abdominal pain; Chest pressure; Additional info: Lymphadenopathy TECHNIQUE: Imaging protocol: Diagnostic computed tomography of the chest with contrast. Radiation optimization: All CT scans at this facility use at least one of these dose optimization techniques: automated exposure control; mA and/or kV adjustment per patient size (includes targeted exams where dose is matched to clinical indication); or iterative reconstruction. Contrast material: OMNI 300; Contrast volume: 95 ml; Contrast route: INTRAVENOUS (IV); COMPARISON: CT abdomen [facility] [id number] 11/14/2019 1:30 PM RADIATION DOSE METRICS: Total DLP (mGy-cm): 2196.94 FINDINGS: Lungs: Unremarkable. No consolidation. No masses. Pleural spaces: Unremarkable. No pneumothorax. No pleural effusion. Heart: No cardiomegaly. No pericardial effusion. Aorta: No aortic aneurysm. Mediastinum/veins: Large mediastinal mass, encasing the left brachiocephalic vein which is patent. Displacement and partial compression of the superior vena cava which is patent. Maximum short axis diameter the mediastinal mass is approximately 4.5 cm. Lymph nodes: Adenopathy in the right lower neck. Bilateral axillary lymph nodes largest approximately 15 mm. As above. Bones/joints: No acute findings. Soft tissues: Unremarkable. IMPRESSION: Large mediastinal mass/adenopathy, right cervical and bilateral axillary adenopathy. The differential diagnosis includes lymphoma and metastatic carcinoma. Displacement and compression of the SVC, no SVC thrombosis. PROCEDURE INFORMATION: Exam: CT Abdomen And Pelvis With Contrast Exam date and time: 09/19/2021 3:02 PM Age: 66 years old Clinical indication: Abdominal pain; Chest pressure; Additional info: Lymphadenopathy TECHNIQUE: Imaging protocol: Computed tomography of the abdomen and pelvis with contrast. Radiation optimization: All CT scans at this facility use at least one of these dose optimization techniques: automated exposure control; mA and/or kV adjustment per patient size (includes targeted exams where dose is matched to clinical indication); or iterative reconstruction. Contrast material: OMNI 300; Contrast volume: 95 ml; Contrast route: INTRAVENOUS (IV); COMPARISON: CT abdomen [facility] [id number] 11/14/2019 1:30 PM RADIATION DOSE METRICS: Total DLP (mGy-cm): 2196.94 FINDINGS: Liver: No mass. Gallbladder and bile ducts: Cholecystectomy. No biliary ductal dilatation. Pancreas: Normal. No ductal dilation. Spleen: Normal. No splenomegaly. Adrenal glands: Normal. No mass. Kidneys and ureters: Normal. No hydronephrosis. Stomach and bowel: No acute findings. No obstruction. No mucosal thickening. Appendix: No evidence of appendicitis. Intraperitoneal space: Stable minimal haziness of the mesenteric fat. No pathologic mesenteric adenopathy. Vasculature: No abdominal aortic aneurysm. Lymph nodes: Small stable retroperitoneal lymph nodes, none larger than approximately 1 cm. Urinary bladder: Bladder catheter, nondistended. Reproductive: Unremarkable as visualized. Bones/joints: Left hip prosthesis, metallic artifact. Old T12 and L1 fractures. Soft tissues: Unremarkable. CT/CT chest abd pel w con* IMPRESSION: Minimal stable retroperitoneal adenopathy. No acute abdominal findings Radiation Dose CTDIVOL = (mGy): DLP = 2196.94~2196.94 (mGy-cm)
[2021-09-19 15:27] LABS: Lactate Dehydrogenase 399 U/L (135-214)
[2021-09-19] MEDS: iodixanol 320 mg/mL 100mL Btl IV (15:29)
[2021-09-19 15:35] LABS: Ketone (Acetest) Serum Negative (Negative)
[2021-09-19] MEDS: cefTRIAXone 1,000 MG in sodium chloride 0.9% (plus) 50 ML 100 MG IV (15:48)
[2021-09-19 16:19] LABS: Lactic Sepsis W/Reflex 2.6 mmol/L (0.5-2.2)
--- NOTE | 2021-09-19 16:59 | PC.NURSE ---
while at bedside pt is in nad. pt is resting quiet on left side in bed. pt has good chest rise and fall.
[2021-09-19 17:37] LABS: Reflex Lactate Order REFLEX LACTIC ORDERD
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
--- NOTE | 2021-09-19 18:35 | PC.NURSE ---
while at bedside pt assisted with blankets pt denies any further needs.
--- NOTE | 2021-09-19 18:42 | PC.NURSE ---
report given to edi jones.
[2021-09-19 20:00] LABS: Lactic Acid level (Lactate) 1.8 mmol/L (0.5-2.2)
[2021-09-19] MEDS: divalproex DR 500 mg Tablet PO (21:06)
[2021-09-19] MEDS: apixaban 5 mg Tablet PO (21:07)
[2021-09-19] MEDS: metoprolol tartrate 50 mg Tablet PO (21:08)
[2021-09-19] MEDS: dextrose 5%-sod chloride 0.45% 1,000 ML 75 ML IV (21:09)
[2021-09-19] MEDS: dexamethasone 4 mg/mL INJ IVP (21:10)
[2021-09-20] VITALS (7 sets, daily range): BP systolic 108–163; BP diastolic 66–95; PULSE 68–90; RESP 16–19; TEMP 36.6–36.9; O2SAT 91–98
[2021-09-20] MEDS: dexamethasone 4 mg/mL INJ IVP ×4 (00:47→19:34)
[2021-09-20 06:02] LABS: Basophils % 0.6 %; Hematocrit 30.8 % (37.0-47.0); Hemoglobin 9.9 g/dL (11.5-15.3); Lymphocytes # 1.6 10^3/uL (0.8-4.8); Lymphocytes % 23.1 %; Mean Corpuscular HGB Conc 32.1 g/dL (30.0-36.0); Mean Corpuscular Hemoglobin 32.1 pg (28.0-34.0); Mean Platelet Volume 9.2 fL (7.4-10.4); Monocytes # 0.6 10^3/uL (0.2-0.9); Monocytes % 8.3 %; Neutrophils # 4.49 10^3/uL (1.8-7.7); Neutrophils % 63.5 %; Nucleated Red Blood Cells % 0 %; Platelet Count 192 10^3/cmm (130-400); Red Blood Count 3.08 10^6/uL (4.1-5.3); Red Cell Distribution Width 15.7 % (12.1-15.1); White Blood Count 7.1 10^3/uL (4.0-10.0)
[2021-09-20] MEDS: fluticasone nasal spray 16gm Btl 2 SPRAY INTRANASAL (06:28)
[2021-09-20] MEDS: metoprolol tartrate 50 mg Tablet PO ×2 (06:29→20:46)
[2021-09-20 06:34] LABS: Anion Gap 13.2 (5-19); Blood Urea Nitrogen 30 mg/dL (8-23); Calcium 10.2 mg/dL (8.5-10.5); Carbon Dioxide 25 mmol/L (22-29); Chloride 105 mmol/L (98-107); Glomerular Filtration Rate 49.5 mL/min (90-130); Glucose 199 mg/dL (65-115); Osmolality Calculated 300 mOsm/kg (285-295); Potassium 4.2 mmol/L (3.5-5.1); Sodium 139 mmol/L (136-145)
[2021-09-20] MEDS: fludrocortisone 0.1 mg Tablet PO (06:34)
[2021-09-20] MEDS: levothyroxine 75 mcg Tablet PO (06:34)
[2021-09-20] MEDS: divalproex DR 500 mg Tablet PO ×3 (06:34→19:34)
[2021-09-20] MEDS: apixaban 5 mg Tablet PO ×2 (06:34→19:34)
[2021-09-20 06:58] LABS: Glucose Point of Care 243 mg/dL (70-110)
[2021-09-20] MEDS: dextrose 5%-sod chloride 0.45% 1,000 ML 75 ML IV (10:06)
[2021-09-20 12:27] LABS: Glucose Point of Care 276 mg/dL (70-110)
[2021-09-20] MEDS: sodium chloride 0.9% 1,000 ML 75 ML IV (13:19)
[2021-09-20 17:23] LABS: Glucose Point of Care 173 mg/dL (70-110)
--- NOTE | 2021-09-20 18:13 | PM.PN ---
Subjective Subjective: Interval history: I did get a hold of her legal guardian. He is leaning towards comfort measures/palliative hospice care because of her poor quality of life. We will not pursue histopathological diagnosis placement of Chemo-Port or chemoradiotherapy This morning patient is able to tell me her name and date of , does all she could answer she keeps repeating answers Looks extremely dry Hyperglycemic, changed fluids to normal saline [phone] contact info of Mr. Anaya legal guardian Vitals/I&O/Wt Last Vital Signs Temp 98 F 09/20/21 15:50 Pulse 90 09/20/21 15:50 Resp 16 09/20/21 15:50 BP 147/79 09/20/21 15:50 Pulse Ox 92 09/20/21 15:50 09/20/21 09/20/21 09/20/21 06:59 14:59 22:59 Intake Total 300 / 450 1100 / 1100 Output Total 1650 / 1650 Balance -1350 / -1200 1100 / 1100 Weight last 48 hrs Weight 84.964 kg Weight 83.007 kg Physical Exam Narrative: EXAM NARRATIVE: Patient laying supine Saturating well on room air Clinically dehydrated Able to tell me her name and date of Legally blind Nonfocal neuro exam Low symmetry no edema Perez catheter draining concentrated urine Distended abdomen nontender Urinary Catheter Management^: Perez: Cath Placed During This Visit: yes Reason for Continuing Indwelling Catheter: Chronic Indwelling Urinary Catheter on Admission Urinary Catheter Date of Insertion: 09/19/21 Urinary Catheter Time of Insertion: 13:09 Data : 09/20/21 05:00 09/20/21 05:00 Micro: Microbiology 09/19/21 13:05 Urine Culture - Preliminary Urine,Clean Catch Gram Negative Rods 09/20/21 09:03 Blood Culture - Preliminary Blood SPECIMEN COLLECTED 09/20/21 08:56 Blood Culture - Preliminary Blood SPECIMEN COLLECTED A&P Assessment and plan (1) Sepsis: Status: Acute (2) UTI (urinary tract infection): Status: Acute (3) Encephalopathy: Status: Acute (4) Compression of superior vena cava: Status: Acute (5) SVC obstruction: Status: Acute (6) Retroperitoneal lymphadenopathy: Status: Acute (7) Metastatic cancer: Status: Acute (8) Bipolar 1 disorder, mixed, moderate: Status: Acute (9) Neuropsychiatric disorder: Status: Acute Additional A&P Information Sepsis secondary to UTI Change fluids to normal saline continue antibiotics She is afebrile, will follow up with blood and urine cultures Superior vena cava obstruction without thrombosis no facial plethora, legal guardian leaning towards hospice care we will not pursue radiotherapy Mediport placement or histopathological diagnosis, continue Decadron for now Encephalopathy related to sepsis and active UTI: Plan to discharge her back to [facility] tomorrow with palliative care Waxing and waning mentation DNR/DNI Dysphagia diet DVT prophylaxis Lovenox Attestations Medical Necessity Statement*: Anticipating discharge to [facility] tomorrow Time Spent in Patient Care: less than 15 minutes Coding Level of Care Code Acute Biological Science Technician Fish for g Fwd Diagnoses Sepsis A41.9 UTI (urinary tract infection) N39.0 Encephalopathy G93.40 Compression of superior vena cava I87.1 SVC obstruction I87.1 Retroperitoneal lymphadenopathy R59.0 Metastatic cancer C79.9 Bipolar 1 disorder, mixed, moderate F31.62 Neuropsychiatric disorder F48.9
--- NOTE | 2021-09-20 20:59 | PC.NURSE ---
spoke with Scarlet Wei LPN from [facility]. This nurse gave updates based from pt progress notes and CM notes.
[2021-09-20 21:02] LABS: Glucose Point of Care 216 mg/dL (70-110)
[2021-09-21] VITALS: BP 153/84; PULSE 82; RESP 18; TEMP 36.6; O2SAT 93
[2021-09-21] MEDS: sodium chloride 0.9% 1,000 ML 75 ML IV (02:44)
[2021-09-21] MEDS: dexamethasone 4 mg/mL INJ IVP ×2 (02:44→06:39)
[2021-09-21 04:00] VITALS: BP 109/84; PULSE 77; RESP 19; TEMP 36.5; O2SAT 97
[2021-09-21 05:55] LABS: Blood Urea Nitrogen 29 mg/dL (8-23); Calcium 9.9 mg/dL (8.5-10.5); Carbon Dioxide 23 mmol/L (22-29); Chloride 107 mmol/L (98-107); Glomerular Filtration Rate 49.5 mL/min (90-130); Glucose 164 mg/dL (65-115); Osmolality Calculated 299 mOsm/kg (285-295); Sodium 140 mmol/L (136-145)
[2021-09-21] MEDS: fludrocortisone 0.1 mg Tablet PO (06:02)
[2021-09-21] MEDS: apixaban 5 mg Tablet PO (06:02)
[2021-09-21] MEDS: divalproex DR 500 mg Tablet PO (06:02)
[2021-09-21] MEDS: levothyroxine 75 mcg Tablet PO (06:02)
[2021-09-21] MEDS: metoprolol tartrate 50 mg Tablet PO (06:02)
[2021-09-21] MEDS: fluticasone nasal spray 16gm Btl 2 SPRAY INTRANASAL (06:06)
[2021-09-21] MEDS: cefTRIAXone 1,000 MG in sodium chloride 0.9% (plus) 50 ML 100 MG IV (06:06)
[2021-09-21 07:16] LABS: Glucose Point of Care 178 mg/dL (70-110)
[2021-09-21 07:52] VITALS: BP 170/88; PULSE 68; RESP 15; TEMP 36.6; O2SAT 95
[2021-09-21 08:31] VITALS: PULSE 68; RESP 15; O2SAT 95
--- NOTE | 2021-09-21 09:23 | PM.DCS ---
Discharge Providers Date of Admission: 09/19/21 15:09 Date of Discharge: September 21, 2021 Attending Provider at Admission: Barbara Joseph MD Attending Provider at Discharge: Barbara Joseph MD Primary Care Provider: Bhavna Minor MD Diagnoses at Discharge Discharge Diagnosis (1) Sepsis: Status: Acute (2) UTI (urinary tract infection): Status: Acute (3) Encephalopathy: Status: Acute (4) Compression of superior vena cava: Status: Acute (5) SVC obstruction: Status: Acute (6) Retroperitoneal lymphadenopathy: Status: Acute (7) Metastatic cancer: Status: Acute (8) Bipolar 1 disorder, mixed, moderate: Status: Acute (9) Neuropsychiatric disorder: Status: Acute Permanent problem details: Head Injuries Blindness Reason for Visit Reason for Visit: [facility] Hospital Course Hospital Course History of Present Illness Radha Valencia is a 66 year old female who is a resident of [place] presented today with worsening confusion. Patient is not able to provide any information. She is legally blind. [facility] called [facility] to get the report. Nurses at the [place] told me that she is wheelchair-bound at baseline, for last 4 to 5 weeks they have been noticing waxing and waning mentation, lately her mentation has gotten worse to the point that she is needing spoon feeding, she does not ambulate on her feet at all, there is no family member who is in touch with her, there is a legal guardian whose number is [phone] Mr. Anaya, his phone is also going straight to [facility]. Records from the [facility] does show DNR/DNI CODE STATUS. I was also able to review medications. Diagnostics in the ER revealed severe UTI, no leukocytosis she is not septic, creatinine 1.2, AFSHIN, lactic acid 2.6 CT chest abdomen pelvis showed minimal stable retroperitoneal adenopathy, large mediastinal mass/adenopathy right cervical bilateral axillary adenopathy with displacement and compression of SVC without thrombosis differentials include lymphoma and metastatic carcinoma no hepatosplenomegaly noted no hydronephrosis Hosp course: Patient was admitted for management of sepsis, worsening encephalopathy. Diagnostic work-up in the ER revealed SVC compression secondary to mediastinal mass with significant adenopathy. However no signs of superior vena cava syndrome. I did discuss this case with Dr. Tripp, considering poor functional status and guarded prognosis he recommended palliative/comfort care in case she declines further and not pursue any chemo or radiotherapy. I was able to get in touch with Mr. Anaya who is her legal guardian. He is in agreement with hospice/palliative care in case of further decline in her clinical status but for now we will treat her UTI, keep Perez catheter and [facility] Urine culture positive for E. coli which is pansensitive. She will be discharged with Levaquin. I tried to get in touch with Dr. Franco to update him however he does not work on Fridays. [facility] called the [facility] and updated the nurse regarding her current plan, and plan for hospice care in case she declines further. They can reassess her for Perez cath removal at the [facility]. Her presentation most likely is consistent with lymphoma and with the SVC involement, her prognosis is guarded. Physical Exam Narrative: EXAM NARRATIVE: Patient does try to answer her name and tell me date of , S1, S2 no murmur appreciated Abdomen is soft nondistended no signs of peritonitis Indwelling catheter with concentrated urine color Lower extremity without any edema She is saturating well on room air Dry mucous membranes She is legally blind Urinary Catheter Management^: Perez: Cath Placed During This Visit: yes Reason for Continuing Indwelling Catheter: Acute Urinary Retention or Obstruction Urinary Catheter Date of Insertion: 09/19/21 Urinary Catheter Time of Insertion: 13:09 Discharge Data Data Completed and Pending: Completed Studies During Hospitalization Category Date Time Status CT cervical spin wo con* 55913 Stat Cat Scan 09/19/21 12:[address] chest abd pel w con* Stat Cat Scan 09/19/21 15:[address] head wo con* [id number] Stat Cat Scan 09/19/21 12:31 Completed Pending at discharge Category Date Time Status Blood Culture Sta t Lab 09/20/21 09:03 Results Labs from last 24 hours 09/21/21 09/21/21 09/20/21 06:52 04:56 20:48 Sodium 140 Potassium 4.0 Chloride 107 Carbon Dioxide 23 Anion Gap 14.0 BUN 29 H Creatinine 1.1 H GFR Calculation 49.5 L Glucose 164 H POC Glucose 178 H 216 H Calculated Osmolal ity 299 H Calcium 9.9 09/20/21 09/20/21 16:52 12:16 Sodium Potassium Chloride Carbon Dioxide Anion Gap BUN Creatinine GFR Calculation Glucose POC Glucose 173 H 276 H Calculated Osmolal ity Calcium Vitals: Last Vital Signs Temp 97.8 F 09/21/21 07:52 Pulse 68 09/21/21 08:31 Resp 15 09/21/21 08:31 BP 170/88 09/21/21 07:52 Pulse Ox 95 09/21/21 08:31 Discharge Plan Discharge Patient Disposition: Xfer SNF Condition: Good Prescriptions: New levofloxacin 750 mg tablet 750 mg PO DAILY 7 Days Qty: 7 RF: 0 Continued metoprolol tartrate 50 mg tablet 50 mg PO BID@ RF: 0 docusate sodium 100 mg tablet 200 mg PO BID@ RF: 0 fludrocortisone 0.1 mg tablet 0.1 mg PO DAILY@ RF: 0 valsartan [Diovan] 80 mg tablet 80 mg PO DAILY@07 RF: 0 Hold Instructions: Resume on 05/04/21. Hold and notify attending. Recheck K+ in 3 days acetaminophen [Tylenol] 325 mg tablet 650 mg PO Q6H MDD 4,000 mg PRN (Reason: Pain) RF: 0 polyethylene glycol 3350 17 gram/dose powder 17 gm PO DAILY PRN (Reason: constipation) RF: 0 insulin aspart U-100 [Novolog Flexpen U-100 Insulin] 100 unit/mL (3 mL) insulin pen 5 unit SUBCUT BID@, RF: 0 ondansetron 4 mg tablet,disintegrating 4 mg PO Q6H PRN (Reason: Nausea) RF: 0 triamcinolone acetonide [Triderm] 0.1 % cream 1 applic TOPICAL TID PRN (Reason: Rash) RF: 0 melatonin 3 mg tablet 3 mg PO BEDTIME@20 RF: 0 trospium 20 mg tablet 20 mg PO BID@, RF: 0 Eliquis 5 mg tablet 5 mg PO BID@, RF: 0 Hold Instructions: Resume on 05/01/21. Hold x 3 days, notify attending for davider instructions risperidone [Risperdal] 1 mg tablet 1 mg PO TID@,, RF: 0 divalproex 500 mg tablet,delayed release (DR/EC) 500 mg PO TID@,, RF: 0 Levemir FlexTouch U-100 Insuln 100 unit/mL (3 mL) insulin pen 12 unit SUBCUT DAILY@07 RF: 0 magnesium hydroxide [Milk of Magnesia] 400 mg/5 mL Suspension 30 ml PO DAILY PRN (Reason: Constipation) RF: 0 bisacodyl 10 mg Suppository 10 mg RI DAILY PRN (Reason: Constipation) RF: 0 Januvia 100 mg Tablet 100 mg PO DAILY@07 RF: 0 (DME) Novofine Autocover 30 gauge x 1/3 Needle MISCELLANEOUS RF: 0 Biotene Oralbalance (enzymes) Liquid See Rx Instructions .ROUTE .COMPLEX RF: 0 oxycodone 5 mg tablet 5 mg PO DAILY PRN (Reason: Pain) RF: 0 levothyroxine 75 mcg Tablet 75 mcg PO DAILY@06 RF: 0 trazodone 100 mg Tablet 100 mg PO BEDTIME@20 RF: 0 Refresh Tears 0.5 % Drops 1 drp ophthalmic (eye) BID PRN (Reason: Dry Eyes) RF: 0 metformin 1,000 mg tablet 1,000 mg PO DAILY@07 RF: 0 Enema Disposable 19-7 gram/118 mL Enema 118 ml RI DAILY PRN (Reason: Constipation) RF: 0 Alphagan P 0.1 % Drops 1 drp ophthalmic (eye) BID@07,19 RF: 0 Robitussin Cough-Chest Asher DM 10-200 mg Capsule 1 cap PO Q4H PRN (Reason: Congestion) RF: 0 Ambien 5 mg Tablet 5 mg PO BEDTIME PRN (Reason: Sleep) RF: 0 fluticasone propionate 50 mcg/actuation [place],Suspension 2 spray INTRANASAL DAILY@07 RF: 0 Claritin 10 mg Tablet 10 mg PO DAILY PRN (Reason: Allergy Symptoms) RF: 0 sertraline 25 mg Tablet 25 mg PO BEDTIME RF: 0 Discontinued ibuprofen 600 mg tablet 600 mg PO TID PRN (Reason: Pain) RF: 0 atorvastatin 20 mg Tablet 20 mg PO DAILY@20 RF: 0 aspirin [Aspir-81] 81 mg Tablet,Delayed Release (Dr/Ec) 81 mg PO DAILY@07 RF: 0 Discharge Orders: Discharge Order (Routine); Ordered 09/21/21 Ordered By: Barbara Joseph Discharge Diet: Soft Mechanical Discharge Activity: Limit activity as instructed and Wheelchair as instructed Patient Instructions: Levofloxacin (By mouth) (Levaquin, Levaquin Leva-shyanne), Urinary Tract Infection in Women (DC), Sepsis (GEN), Superior Vena Cava Syndrome (DC) Discharge Attestations Time Spent in Discharge Care*: less than 30 min Quality Metrics Clinical Quality Measures During this hospital stay, did patient experience: None Coding Level of Care Code Acute Chg FW DC note Diagnoses Sepsis A41.9 UTI (urinary tract infection) N39.0 Encephalopathy G93.40 Compression of superior vena cava I87.1 SVC obstruction I87.1 Retroperitoneal lymphadenopathy R59.0 Metastatic cancer C79.9 Bipolar 1 disorder, mixed, moderate F31.62 Neuropsychiatric disorder F48.9
[2021-09-21 12:00] VITALS: BP 159/90; PULSE 84; RESP 16; TEMP 37; O2SAT 94
[2021-09-21 12:05] LABS: Glucose Point of Care 207 mg/dL (70-110)
--- NOTE | 2021-09-21 13:35 | PC.CHAP ---
Pastoral Care Encounter/Spiritual Assessment Type of Contact [] Declined cold storage superintendent visit [] Patient/Family/Request visit [] Outpatient visit [] Follow-up visit [] Physician referral [] Code/Alert [] Routine visit [] Staff referral [] Actively dying [xx] Patient sleeping [] Family support [] [] Out of room [] Palliative care [] [] Receiving care in room [] Pre-surgical visit [] Trauma [] Long length of stay [] ICU visit [] Other: Relational/Emotional Strength [] Patient feels connected with others/family/visitors/staff [] Distress [] Loneliness/isolation [] Abandonment Spirituality of Patient [] Person of Myra [] Attends Scientology of their Myra [] Believes in Prayer [] Reads Bible or Yazidism materials [] There are Spiritual issues to be addressed Crossing Watchman Interventions [] Prayer [] Active listening [] Non-anxious presence [] Spiritual/emotional support [] Crisis/trauma care [] Spiritual counseling [] Bereavement support [] Provided bereavement packet [] Provided Bible/devotional materials [] Provided toy/stuffed animal, coloring book to patient or family member [] Provided Communion [] Anointing/[place] [] Salvation [] Completed spiritual assessment [] Other: Impact on Illness or Injury [] Angry [] Fearful [] Anxious [] Often cries [] Exhaustion [] Unable to work [] Unable to attend gnosticist [] Unable to walk/stand [] Unable to read [] Unable to drive [] Unable to eat/drink [] Unable to sleep [] Unable to be with family [] Patient intubated [] Other: Summary Crossing Watchman follow up visit needed. Time spent with patient
[2021-09-21 13:43] VITALS: BP 159/90; PULSE 84; RESP 16; TEMP 37; O2SAT 94
== END 2021-09-21 13:43 | disposition skilled nursing facility (03) | DRG 689 ==
LOC: ER 12:35 → MEDSURG 18:26
PROVIDERS: Admitting Provider Internal Medicine; Emergency Provider Family Medicine; PCP Family Medicine; Visit Provider Internal Medicine
DX: N39.0 Urinary tract infection, site not specified (principal); G93.41 Metabolic encephalopathy; J98.59 Other diseases of mediastinum, not elsewhere classified; N17.9 Acute kidney failure, unspecified; F05 Delirium due to known physiological condition; I87.1 Compression of vein; D64.9 Anemia, unspecified; F41.9 Anxiety disorder, unspecified; I48.91 Unspecified atrial fibrillation; F31.9 Bipolar disorder, unspecified; G40.909 Epilepsy, unspecified, not intractable, without status epilepticus; H40.9 Unspecified glaucoma; I10 Essential (primary) hypertension; E03.9 Hypothyroidism, unspecified; H35.30 Unspecified macular degeneration; F43.10 Post-traumatic stress disorder, unspecified; F20.9 Schizophrenia, unspecified; Z91.51 Personal history of suicidal behavior; E11.9 Type 2 diabetes mellitus without complications; Z79.891 Long term (current) use of opiate analgesic; Z79.84 Long term (current) use of oral hypoglycemic drugs; Z79.01 Long term (current) use of anticoagulants; Z79.4 Long term (current) use of insulin; B96.20 Unspecified Escherichia coli [E. coli] as the cause of diseases classified elsewhere; G47.00 Insomnia, unspecified; Z99.3 Dependence on wheelchair; H54.8 Legal blindness, as defined in USA; Z66 Do not resuscitate; R59.0 Localized enlarged lymph nodes
CPT/HCPCS: 36415; 36416; 51702; 70450; 71260; 72125; 74177; 80048; 80053; 80164; 81001; 82009; 82962; 83605; 83615; 85025; 87040; 87077; 87086; 87186; 92610; 93005; 96372; 99285; J0696; J0743; J1100; J1815; J7030; J7799; Q9967